=== PATIENT | female | born 1985 | race Caucasian/White ===

== ENCOUNTER 2019-01-22 13:17 | Emergency (ER) | payer BC ==
[2019-01-22] MEDS ORDERED: ACETAMINOPHEN 325 MG TAB ONE (14:54)
== END 2019-01-22 15:43 | disposition home or self-care (01) ==
LOC: EDH 13:17
DX: S62.627A Displaced fracture of middle phalanx of left little finger, initial encounter for closed fracture (principal); S80.211A Abrasion, right knee, initial encounter; S60.512A Abrasion of left hand, initial encounter; L93.0 Discoid lupus erythematosus; V19.9XXA Pedal cyclist (driver) (passenger) injured in unspecified traffic accident, initial encounter; Y93.55 Activity, bike riding; Y92.89 Other specified places as the place of occurrence of the external cause; Y99.8 Other external cause status; S09.8XXA Other specified injuries of head, initial encounter
CPT/HCPCS: 29130; 70450; 72125; 73130